=== PATIENT | female | born 1965 | race Caucasian/White ===

== ENCOUNTER 2025-09-19 07:51 | Outpatient (CLI) | payer BC, SELFPAY ==
--- OUTSIDE RECORDS SUMMARY | 2025-09-19 07:54 | XMS_ITS | Encounter Summary ---
Author Organization [facility] Address [address] [place] [address] Phone Care Team Providers Care Food Critic Name Role Phone Aryan Davis MD Primary Care Provider [phone] Encounter Details Date Type Department Care Team (Late st Contact Info) Description 07/26/2025 Results Follow-Up [facility] Multiple Sclerosis [address] [facility] Advanced Medicine [address]th [place] [address] Susan Flores, PLANNING AIDE [address] [place] [address] Differential, auto Social History Tobacco Use Types Packs/Day Years Used Date Smoking Tobacco: Never Smokeless Tobacco: Never Comments No Sex and Gender Information Value Date Recorded Sex Assigned at Not on file Legal Sex Female 12:20 AM SUPERVISOR [employer] Gender Identity Female 06/01/2021 9:55 AM CDT Sexual Orientation Straight 06/01/2021 9: 54 AM CDT documented as of this encounter Plan of Treatment Not on file documented as of this encounter Visit Diagnoses Not on filedocumented in this encounter Care Teams Food Critic Relationship Specialty Start Date End Date Aryan Davis MD PCP - General 04/06/17 documented as of this encounter
--- OUTSIDE RECORDS SUMMARY | 2025-09-19 07:54 | XMS_ITS | Encounter Summary ---
Author Organization [facility] Address [address] [place] [address] Phone Care Team Providers Care Industrial Safety Engineer Name Role Phone Aryan Davis MD Primary Care Provider [phone] Encounter Details Date Type Department Care Team (Late st Contact Info) Description 08/20/2025 Results Follow-Up [facility] Multiple Sclerosis [address] [facility] Advanced Medicine [address]th [place] [address] Susan Flores, METAL HARDENER [address] [place] [address] MRI MS Brain 3T Protocol W WO Contrast Social History Tobacco Use Types Packs/Day Years Used Date Smoking Tobacco: Never Smokeless Tobacco: Never Comments No Sex and Gender Information Value Date Recorded Sex Assigned at Not on file Legal Sex Female 12:20 AM YEAST CULTURE OPERATOR Gender Identity Female 06/01/2021 9:55 AM CDT Sexual Orientation Straight 06/01/2021 9: 54 AM CDT documented as of this encounter Plan of Treatment Not on file documented as of this encounter Visit Diagnoses Not on filedocumented in this encounter Care Teams Industrial Safety Engineer Relationship Specialty Start Date End Date Aryan Davis MD PCP - General 04/06/17 documented as of this encounter
--- OUTSIDE RECORDS SUMMARY | 2025-09-19 07:54 | XMS_ITS | Encounter Summary ---
Author Organization [facility] Address [address] [place] [address] Care Team Providers Care Bowling Alley Refinisher Name Role Phone Aryan Davis MD Primary Care Provider [phone] Encounter Details Date Type Department Care Team (Late st Contact Info) Description 07/17/2025 Telemedicine [facility] [address] [place] [address] Dara Hendrickson RPh Social History Tobacco Use Types Packs/Day Years Used Date Smoking Tobacco: Never Smokeless Tobacco: Never Comments No Sex and Gender Information Value Date Recorded Sex Assigned at Not on file Legal Sex Female 12:20 AM SOLARIS ADMINISTRATOR Gender Identity Female 06/01/2021 9:55 AM CDT Sexual Orientation Straight 06/01/2021 9: 54 AM CDT documented as of this encounter Progress Notes * Dara Hendrickson RPh - 07/17/2025 9:24 AM CDT error documented in this encounter Plan of Treatment Not on file documented as of this encounter Visit Diagnoses Not on filedocumented in this encounter Care Teams Bowling Alley Refinisher Relationship Specialty Start Date End Date Aryan Davis MD PCP - General 04/06/17 documented as of this encounter
--- OUTSIDE RECORDS SUMMARY | 2025-09-19 07:54 | XMS_ITS | Clinical Summary ---
Author Organization [facility]'s [facility] Address [address] [facility] and [place] [address] Care Team Providers Care Permastone Installer Name Role Phone Aryan Davis MD Primary Care Provider Allergies Active Allergy Reactions Criticality Noted Date Comments Ibuprofen Unknown 06/07/2012 Amoxicillin Hives Medium 09/22/2019 Lisinopril Cough Low 06/06/2019 Montelukast Headache Low 06/06/2019 Montelukast Sodium Unknown 02/24/2021 Oxycodone-Acetaminophen Unknown 11/29/2018 Sulfa (Sulfonamide Antibiotics) Hives Medium 02/18 Medications calcium carbonate-vitam in D3 1500 mg (600 mg elemental) -200 units per tablet daily. Active cholecalciferol (VITAMIN D-3) 1,000 unit capsule Take 2 capsules (2,000 Units total) by mouth daily Active evening primrose oil 500 mg capsule Activ e multivitamin tabletIndicatio ns:Vitamin Deficiency Prevention Active traZODone (DESYREL) 50 mg tablet Take 1 tablet (50 mg total) by mouth daily 7 Active docusate sodium (COLACE) 100 mg capsuleIndicati ons:constipatio n Take 1 capsule (100 mg total) by mouth 2 (two) times a day Active sertraline (ZOLOFT) 100 mg tablet Take 1 tablet (100 mg total) by mouth daily 1 9 Active olmesartan (BENICAR) 20 mg tablet olmesartan 20 mg tablet TAKE 1 TABLET BY MOUTH EVERY DAY Active presley chvz-reqegpst-s amolenic ac 1,000 mg capsule Take by mouth Active baclofen (LIORESAL) 10 mg tabletIndicatio ns:Multiple sclerosis,High risk medication use,Vitamin D deficiency,Abno rmality of gait and mobility,[facility] 20 mg AM, 30 mg PM 450 tablet 3 5 Active dimethyl fumarate 240 mg capsule,delayed release(DR/EC)I ndications:Mult iple sclerosis,High risk medication use,Medication monitoring encounter,Abnor mal MRI,Mixed anxiety and depressive disorder TAKE 1 CAPSULE BY MOUTH 2 TIMES A DAY 60 capsule 5 5 Active diazePAM (VALIUM) 5 mg tablet Take one tab 30 minutes prior to MRI. Repeat once if needed 3 tablet 5 Active omeprazole (PriLOSEC) 40 mg capsuleIndicati ons:Gastro-esop hageal reflux disease without esophagitis Take 1 capsule (40 mg total) by mouth every morning 90 capsule 1 5 Active propranoloL (INDERAL) 20 mg tabletIndicatio ns:Ophthalmople gic migraine, not intractable Take 2 tablets (40 mg total) by mouth nightly 180 tablet 1 5 Active propranoloL (INDERAL) 20 mg tabletIndicatio ns:Ophthalmople gic migraine, not intractable TAKE 2 TABLETS BY MOUTH EVERY DAY AT NIGHT 180 tablet 1 5 08/31/20 25 Discontin ued(Reord er) omeprazole (PriLOSEC) 40 mg capsuleIndicati ons:Gastro-esop hageal reflux disease without esophagitis TAKE 1 CAPSULE BY MOUTH EVERY DAY IN THE MORNING 90 capsule 1 5 08/31/20 25 Discontin ued(Reord er) Active Problems Problem Noted Date Diagnosed Date Dysesthesia of multiple sites 07/14/2023 Balance disorder 09/21/2022 Abnormality of gait and mobility 09/21/2022 Abnormal MRI 03/02/2021 Vitamin D deficiency 03/02/2021 Spasticity 03/02/2021 Anemia 10/04/2020 Arthritis 09/22/2019 Essential hypertension 09/22/2019 Obesity 09/22/2019 Sinusitis 09/22/2019 Gastroesophageal reflux disease 09/07/2019 Ophthalmic migraine 09/07/2019 Elevated liver enzymes 05/31/2018 Medication monitoring encounter 05/31/2018 History of colonoscopy 11/12/2016 High risk medication use 03/31/2016 Primary osteoarthritis of both knees 12/19/2015 Mixed anxiety and depressive disorder 02/16/2014 Migraine without aura and wi thout status migrainosus, not intractable 08/21/2013 Multiple sclerosis, relapsing-remitting 02/11/20 10 Encounters Date Type Department Care Team Description 08/20/2025 Results Follow-Up [facility] Multiple Sclerosis [address] [phone] Susan Flores, ACETYLENE TORCH OPERATOR MRI MS Brain 3T Protocol W WO Contrast 08/17/2025 3:03 PM TANDEM OPERATOR - 08/17/2025 11:59 PM TANDEM OPERATOR Hospital Encounter [facility] [address] [place] [phone] Multiple sclerosis, relapsing-remitting ; High risk medication use; Medication monitoring encounter; Abnormal MRI; Mixed anxiety and depressive disorder; Migraine without aura and without status migrainosus, not intractable; Abnormality of gait and mobility Discharge Disposition: Discharge to home or self care 07/26/2025 1:40 PM TANDEM OPERATOR Lab [facility] [address] [place] [phone] Multiple sclerosis, relapsing-remitting ; High risk medication use; Medication monitoring encounter; Abnormal MRI; Mixed anxiety and depressive disorder; Migraine without aura and without status migrainosus, not intractable; Abnormality of gait and mobility 07/26/2025 11:00 AM TANDEM OPERATOR Office Visit [facility] Multiple Sclerosis [address] [place] [phone] Susan Flores, ACETYLENE TORCH OPERATOR Multiple sclerosis, relapsing-remitting (Primary Dx); High risk medication use; Medication monitoring encounter; Abnormal MRI; Mixed anxiety and depressive disorder; Migraine without aura and without status migrainosus, not intractable; Abnormality of gait and mobility 07/26/2025 Results Follow-Up [facility] Multiple Sclerosis [address] [place] [phone] Susan Flores, ACETYLENE TORCH OPERATOR Differential, auto 07/17/2025 Telephone [facility] [address] [place] [address] Dara Hendrickson RPh Prior Auth 07/17/2025 Telemedicine [facility] [address] [place] [address] Dara Hendrickson RPh from Last 3 Months Immunizations Immunization Administration Dates Next Due Pfizer SARS-CoV-2 Monovalent Vaccination (12+ Yrs) PURPLE 11/19/2020,10/29/2020 Sars-CoV-2, Unspecified 11/19/2020,10/29/2020 Surgical History Surgery Date Site/Laterality Comments [place] NEUROPLASTY &/TRANSPOS ME DERRELL NRV CARPAL TUNNE Neuroplasty Decompression Median Nerve At Carpal Tunnel - right (Added by TW Conv) [place] TONSILLECTOMY PRIMARY/SECONDARY <AGE 12 Tonsillectomy - (Added by TW Conv) [place] ARTHRODESIS ANKLE OPEN Ankle Arthrodesis Left - (Added by TW Conv) STOMACH SURGERY Gastric Surgery For Morbid Obesity - (Added by TW Conv) Medical History Medical History Date Comments Dry eye syndrome of both lacrimal glands Dry eyes, bilateral - (Added by TW Conv) Family History Medical History Relation Name Comments Multiple sclerosis Other 1 Multiple Sclerosis - dad's cousin (Added by TW Conv) Parkinsonism Other 2 Parkinson's Dis ease - dad's side (Added by TW Conv) Hypertension Other 3 Hypertension - mom and brother (Added by TW Conv) Heart disease Other 4 Heart Disease - brother (Added by TW Conv) Relation Name Status Comments Other 1 Other 2 Other 3 Other 4 Social History Tobacco Use Types Packs/Day Years Used Date Smoking Tobacco: Never Smokeless Tobacco: Never Tobacco Cessation:Counseling Given: Not Answered Comments No Sex and Gender Information Value Date Recorded Sex Assigned at Not on file Legal Sex Female 12:20 AM TANDEM OPERATOR Gender Identity Female 06/01/2021 9:55 AM CDT Sexual Orientation Straight 06/01/2021 9: 54 AM CDT Last Filed Vital Signs Vital Sign Reading Time Taken Comments Blood Pressure 127/80 07/26/2025 10:55 AM TANDEM OPERATOR Pulse 69 07/26/2025 10:55 AM TANDEM OPERATOR Temperature 36.9 C (98.4 F) 03/20/2025 10:57 AM CDT Respiratory Rate - - Oxygen Saturation 97% 03/20/2025 10:57 AM CDT Inhaled Oxygen Concentration - - Weight 95.3 kg (210 lb) 08/17/2025 3:25 PM TANDEM OPERATOR Height 154.9 cm (5' 1) 08/17/2025 3:25 PM TANDEM OPERATOR Body Mass Index 39.68 08/17/2025 3:25 PM TANDEM OPERATOR Plan of Treatment Health Maintenance Due Date Last Done Comments Breast Cancer Screening-Mammogram 1965 Cervical Cancer Screening 1965 Colon Cancer Screening-Colonoscopy 1965 Depression Screening 1965 Hepatitis C Screening 1965 DTaP/Tdap/Td Vaccine (1 - Tdap) 1976 Hepatitis B Screening 1983 Regular Well Visit/Exam 18-64 1983 Zoster Vaccine (1 of 2) 2015 Covid-19 Vaccine ( season) 2025 09/15/2023, 08/31/2021, 11/19/2020, Additional history exists Influenza Vaccine (#1) 2025 Pneumococcal vaccine <65 Aged Out No longer eligible based on patient's age to complete this topic Medical Devices Implanted Type Area Aerobics Instructor Device Identifier Shelf Expiration Date Model / Serial / Lot Knee-09/05/2017 Implanted:2016 (Quantity not on file) Knee Procedures Procedure Name Priority Date/Time Associated Diagnosis Comments MRI MS BRAIN 3T PROTOCOL W WO CONTRAST Schedule Routine, Read Routine (OP Routine) 08/17/2025 4:34 PM TANDEM OPERATOR Multiple sclerosis, relapsing-remittin g High risk medication use Medication monitoring encounter Abnormal MRI Mixed anxiety and depressive disorder Migraine without aura and without status migrainosus, not intractable Abnormality of gait and mobility EGFR Routine 07/26/2025 11:49 AM TANDEM OPERATOR Multiple sclerosis, relapsing-remittin g High risk medication use Medication monitoring encounter Abnormal MRI Mixed anxiety and depressive disorder Migraine without aura and without status migrainosus, not intractable Abnormality of gait and mobility DIFFERENTIAL AUTO Routine 07/26/2025 11: 49 AM TANDEM OPERATOR Multiple sclerosis, relapsing-remittin g High risk medication use Medication monitoring encounter Abnormal MRI Mixed anxiety and depressive disorder Migraine without aura and without status migrainosus, not intractable Abnormality of gait and mobility CBC WITH AUTO DIFFERENTIAL Routine 07/26/2025 11:49 AM TANDEM OPERATOR Multiple sclerosis, relapsing-remittin g High risk medication use Medication monitoring encounter Abnormal MRI Mixed anxiety and depressive disorder Migraine without aura and without status migrainosus, not intractable Abnormality of gait and mobility COMPREHENSIVE METABOLIC PANEL Routine 07/26/2025 11:49 AM TANDEM OPERATOR Multiple sclerosis, relapsing-remittin g High risk medication use Medication monitoring encounter Abnormal MRI Mixed anxiety and depressive disorder Migraine without aura and without status migrainosus, not intractable Abnormality of gait and mobility from Last 3 Months Results * MRI MS Brain 3T Protocol W WO Contrast (08/17/2025 4:34 PM TANDEM OPERATOR) Anatomical Region Laterality Modality Head and Neck N/A Magnetic Resonan ce 08/17/2025 5:07 PM TANDEM OPERATOR Impressions 08/17/2025 5:07 PM TANDEM OPERATOR No significant interval change in intracranial white matter lesions. Electronically signed by: Jia Farah M.D., Ph.D. Narrative 08/17/2025 5:07 PM TANDEM OPERATOR EXAMINATION: Magnetic resonance imaging (MRI) of the brain and brainstem without and with contrast HISTORY: 60 years-old Female with Attention to TGN. New TG pain mainly V2 on R side.. Relapsing remitting multiple sclerosis. TECHNIQUE: Multiplanar multi-weighted MRI of the brain, brainstem was performed without and with intravenous contrast using the multiple sclerosis protocol. Scanner: Lecanto Field Strength: 3T Contrast information: 18 mL Gadoterate Meglumine IV The post-contrast scan was performed approximately 5 minutes after IV contrast administration. COMPARISON: Brain MRI 07/01/2024 and 12/26/2019. FINDINGS: BRAIN: No new T2 FLAIR lesions are identified in the white matter. There is mild prominence of the proximal V2 segment of cranial nerve V on the LEFT, with mild hyperintensity and increased caliber compared to the right side. However this subtle prominence is also present on the prior examination in 2022 which was the last time the 3-D FLAIR was improved included in the protocol. No findings are identified to correlate with reported right V2 symptoms. There are multiple foci of T2W/FLAIR hyperintensity within the brain white matter. This includes periventricular, callosal, cerebellar, cortical or juxtacortical, and brainstem lesions. Imaging to detect the central vein sign was not diagnostic (it was motion degraded). There is moderate maxillary and ethmoid and frontal sinus mucosal thickening, similar to the prior examination. Procedure Note Jia Farah MD PhD - 08/17/2025 EXAMINATION: Magnetic resonance imaging (MRI) of the brain and brainstem without and with contrast HISTORY: 60 years-old Female with Attention to TGN. New TG pain mainly V2 on R side.. Relapsing remitting multiple sclerosis. TECHNIQUE: Multiplanar multi-weighted MRI of the brain, brainstem was performed without and with intravenous contrast using the multiple sclerosis protocol. Scanner: Lecanto Field Strength: 3T Contrast information: 18 mL Gadoterate Meglumine IV The post-contrast scan was performed approximately 5 minutes after IV contrast administration. COMPARISON: Brain MRI 07/01/2024 and 12/26/2019. FINDINGS: BRAIN: No new T2 FLAIR lesions are identified in the white matter. There is mild prominence of the proximal V2 segment of cranial nerve V on the LEFT, with mild hyperintensity and increased caliber compared to the right side. However this subtle prominence is also present on the prior examination in 2022 which was the last time the 3-D FLAIR was improved included in the protocol. No findings are identified to correlate with reported right V2 symptoms. There are multiple foci of T2W/FLAIR hyperintensity within the brain white matter. This includes periventricular, callosal, cerebellar, cortical or juxtacortical, and brainstem lesions. Imaging to detect the central vein sign was not diagnostic (it was motion degraded). There is moderate maxillary and ethmoid and frontal sinus mucosal thickening, similar to the prior examination. IMPRESSION: No significant interval change in intracranial white matter lesions. Electronically signed by: Jia Farah M.D., Ph.D. Susan Flores ACETYLENE TORCH OPERATOR IMG MRI PROCEDURES Final Resul t * eGFR (07/26/2025 11:49 AM TANDEM OPERATOR) [facility] eGFR >90 >=60 mL/min/1. 73 m2 Comment: Interpretive Data Reference Interval Normal >/= 90 mL/min/1.73m2 Mildly decreased* 60 - 89 mL/min/1.73m2 Mildly to moderately decreased 45 - 59 mL/min/1.73m2 Moderately to severely decreased 30 - 44 mL/min/1.73m2 Severely decreased 15 - 29 mL/min/1.73m2 Kidney Failure < 15 mL/min/1.73m2 *Relative to young adult level Estimated glomerular filtration rate is determined by the 2020 CKD-EPI equation recommended by the National Kidney Foundation (A Unifying Approach to GFR Estimation: Recommendations of the NKF-ASK Task Force on Reassessing the Inclusion of Race in Diagnosing Kidney Disease, JASN 2020). The CKD-EPI equation should not be used for patients with unstable renal function and has not been validated in children and those over 70. Current interpretive data was last reviewed 2021. Blood 07/26/2025 11:4 9 AM TANDEM OPERATOR 07/26/2025 12:09 PM TANDEM OPERATOR us Susan Flores ACETYLENE TORCH OPERATOR LAB BLOOD ORDERABLES Final Res ult [facility] Department [place] [address] * Differential, auto (07/26/2025 11:49 AM TANDEM OPERATOR) [facility] Neutrophil abs 3.66 1.50 - 6.50 K/cumm Imm gran abs 0.01 0.00 - 0.10 K/cumm [facility] Lymphocyte abs 1.01 0.80 - 3.30 K/cumm [facility] Monocyte abs 0.52 0.20 - 0.80 K/cumm [facility] Eosinophil abs 0.17 0.00 - 0.50 K/cumm [facility] Basophil abs 0.03 0.00 - 0.10 K/cumm [facility] Neutrophil pct 67.8 % [facility] Comment: Interpretive Data Percent cell count reference ranges are not reported, since discordance with absolute values may lead to misinterpretation of CBC data. Current Interpretive Data was last revised on 2017. Imm gran pct 0.2 % [facility] Comment: Interpretive Data Percent cell count reference ranges are not reported, since discordance with absolute values may lead to misinterpretation of CBC data. Current Interpretive Data was last revised on 2017. Lymphocyte pct 18.7 % [facility] Comment: Interpretive Data Percent cell count reference ranges are not reported, since discordance with absolute values may lead to misinterpretation of CBC data. Current Interpretive Data was last revised on 2017. Monocyte pct 9.6 % [facility] Comment: Interpretive Data Percent cell count reference ranges are not reported, since discordance with absolute values may lead to misinterpretation of CBC data. Current Interpretive Data was last revised on 2017. Eosinophil pct 3.1 % [facility] Comment: Interpretive Data Percent cell count reference ranges are not reported, since discordance with absolute values may lead to misinterpretation of CBC data. Current Interpretive Data was last revised on 2017. Basophil pct 0.6 % [facility] Comment: Interpretive Data Percent cell count reference ranges are not reported, since discordance with absolute values may lead to misinterpretation of CBC data. Current Interpretive Data was last revised on 2017. Blood 07/26/2025 11:4 9 AM TANDEM OPERATOR 07/26/2025 12:03 PM TANDEM OPERATOR Ashley Sandra ACETYLENE TORCH OPERATOR LAB BLOOD ORDERABLES Final Res ult [facility] Department [place] [address] * (ABNORMAL) CBC with auto differential (07/26/2025 11:49 AM TANDEM OPERATOR) WBC 5.40 3.80 - 9.90 K/cumm Hgb 11.6(L) 11.9 - 15.5 g/dL [facility] Hct 35.2(L) 35.6 - 45.5 % [facility] Plt 277 150 - 400 K/cumm [facility] MPV 10.7 9.1 - 12.3 fL [facility] RBC 4.05 3.90 - 5.20 M/cumm [facility] MCV 86.9 81.3 - 96.4 fL [facility] MCH 28.6 27.1 - 33.3 pg [facility] MCHC 33.0 32.3 - 35.7 g/dL [facility] RDW CV 15.5(H) 11.1 - 14.9 % [facility] RDW SD 49.2(H) 35.7 - 48.1 fL [facility] NRBC abs 0.00 0.00 - 0.01 K/cumm [facility] Blood 07/26/2025 11:4 9 AM TANDEM OPERATOR 07/26/2025 12:03 PM TANDEM OPERATOR Susan Flores ACETYLENE TORCH OPERATOR LAB BLOOD ORDERABLES Final Res ult Performing Organization Address City/State/[facility] Co de Phone Number [facility] Department [place] [address] * (ABNORMAL) Comprehensive metabolic panel (07/26/2025 11:49 AM TANDEM OPERATOR) Sodium 143 135 - 145 mmol/L Potassium, pl 4.6 3.3 - 4.9 mmol/L [facility] Chloride 104 97 - 110 mmol/L [facility] CO2 30 22 - 32 mmol/L [facility] Anion gap 9 2 - 15 mmol/L [facility] BUN 9 6 - 25 mg/dL [facility] Creatinine 0.59(L) 0.60 - 1.10 mg/dL [facility] Glucose 88 70 - 199 mg/dL [facility] Comment: Interpretive Data Fasting glucose >/= 126 mg/dl is diagnostic for diabetes. Fasting is defined as no caloric intake for at least 8 hours. Fasting glucose between 100 mg/dl to 125 mg/dl is diagnostic of prediabetes. In a patient with classic symptoms of hyperglycemia or hyperglycemic crisis, a random glucose >/= 200 mg/dl is diagnostic for diabetes. In the absence of unequivocal hyperglycemia, results should be confirmed by repeat testing. The classification and Diagnosis of Diabetes Diabetes Care 2021; 46: S19-S40. Current interpretive data was last revised 2022. Calcium 9.5 8.5 - 10.3 mg/dL [facility] Bilirubin, total 0.5 0.1 - 1.2 mg/dL [facility] Protein, pl 7.3 6.5 - 8.5 g/dL [facility] Albumin 4.6 3.5 - 5.0 g/dL [facility] Alk phos 80 40 - 130 Units/L [facility] ALT 21 7 - 45 Units/L [facility] AST 28 10 - 45 Units/L [facility] Blood 07/26/2025 11:4 9 AM TANDEM OPERATOR 07/26/2025 12:03 PM TANDEM OPERATOR Susan Flores ACETYLENE TORCH OPERATOR LAB BLOOD ORDERABLES Final Res ult [facility] Department [place] [address] from Last 3 Months Insurance [employer] OOS ANTHEM ACCESS BLUE ACCESS OOS BLUE ACCESS OOS Care Teams Permastone Installer Relationship Specialty Start Date End Date Aryan Davis MD PCP - General 04/06/17
--- OUTSIDE RECORDS SUMMARY | 2025-09-19 07:54 | XMS_ITS | Encounter Summary ---
Author Organization [facility] Address [address] [place] [address] Phone Care Team Providers Care Certified Surgical First Assistant Name Role Phone Aryan Davis MD Primary Care Provider [phone] Encounter Details Date Type Department Care Team (Late st Contact Info) Description 06/06/2021 Orders Only [facility] Scanning, Provider Social History Tobacco Use Types Packs/Day Years Used Date Smoking Tobacco: Never Smokeless Tobacco: Never Comments Unknown Sex and Gender Information Value Date Recorded Sex Assigned at Not on file Legal Sex Female 12:20 AM TUGBOAT CAPTAIN Gender Identity Female 06/01/2021 9:55 AM CDT Sexual Orientation Straight 06/01/2021 9: 54 AM CDT documented as of this encounter Plan of Treatment Not on file documented as of this encounter Procedures Procedure Name Priority Date/Time Associated Diagnosis Comments SCAN - RADIOLOGY/IMAGING 06/06/2021 documented in this encounter Results * SCAN - RADIOLOGY/IMAGING (06/06/2021) Anatomical Region Laterality Modality Other us Provider Scanning Edited Result - Final documented in this encounter Visit Diagnoses Not on filedocumented in this encounter Care Teams Certified Surgical First Assistant Relationship Specialty Start Date End Date Aryan Davis MD PCP - General 04/06/17 documented as of this encounter
== END 2025-09-19 07:52 | disposition home or self-care (01) ==
LOC: ANHAUDIO 07:51
PROVIDERS: PCP Internal Medicine; Visit Provider Otolaryngology
DX: H92.01 Otalgia, right ear (principal)
CPT/HCPCS: 92557; 92567